=== PATIENT | female | born 2000 | race Caucasian/White ===

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

== ENCOUNTER 2018-07-02 14:22 | Emergency (ER) | payer OTHER | END 2018-07-02 16:28 | disposition home or self-care (01) | LOC: FTE 14:22 | DX: S99.912A Unspecified injury of left ankle, initial encounter (principal); X58.XXXA Exposure to other specified factors, initial encounter; Y92.219 Unspecified school as the place of occurrence of the external cause | CPT/HCPCS: 73590; 73610; 73630-LT; 99283-25 ==

== ENCOUNTER 2019-03-20 07:02 | Day surgery (SDC) | payer OTHER ==
[2019-03-20 08:06] LABS: ADD MAN DIFF? NO
[2019-03-20 08:09] LABS: WHITE BLOOD COUNT 5.1 10^3/ul (4.8-10.8)
[2019-03-20 08:09] LABS: BASOPHILS % 0.8 % (0.0-2.0); EOSINOPHILS # 0.2 10^3/ul (0.0-0.5); EOSINOPHILS % 3.1 % (0.0-7.0); HEMATOCRIT 40.1 % (37.0-47.0); HEMOGLOBIN 13.5 g/dl (12.0-16.0); LYMPHOCYTES # 2.2 10^3/ul (0.8-2.9); LYMPHOCYTES % 43.4 % (18.0-55.0); MEAN CORPUSCULAR HEMOGLOBIN 30.1 pg (29.0-33.0); MEAN CORPUSCULAR HGB CONC 33.7 g/dl (32.0-37.0); MEAN CORPUSCULAR VOLUME 89.3 fl (72.0-104.0); MEAN PLATELET VOLUME 10.5 fl (7.4-10.4); MONOCYTE # 0.4 10^3/ul (0.3-0.9); NEUTROPHIL # 2.3 10^3/ul (1.6-7.5); NEUTROPHILS % 45.5 % (30.0-74.0); PLATELET COUNT 216 10^3/UL (140-415); RED BLOOD COUNT 4.49 10^6/ul (4.20-5.40); RED CELL DISTRIBUTION WIDTH 12.2 % (11.5-14.5)
[2019-03-20] MEDS: SOD CHLORIDE 0.9% 1,000 ML IV (08:15)
[2019-03-20 08:28] LABS: ANION GAP 9 (5-13); BLOOD UREA NITROGEN 14 mg/dl (7-20); CALCIUM 9.6 mg/dl (8.4-10.2); CARBON DIOXIDE 28 mmol/L (21-31); CHLORIDE 105 mmol/L (97-110); CREATININE 0.58 mg/dl (0.44-1.00); Estimated GFR > 60 mL/min (>60); GLUCOSE 96 mg/dl (70-220); POTASSIUM 4.3 mmol/L (3.5-5.1); SODIUM 142 mmol/L (135-144)
[2019-03-20 08:33] LABS: PROTIME 12.3 Sec (11.9-14.9)
[2019-03-20 08:34] LABS: PARTIAL THROMBOPLASTIN TIME 26.4 Sec (23.0-35.0)
[2019-03-20] MEDS ORDERED: CEFAZOLIN 2 GM/50 ML (PMX) 50 ML IVPB (09:00)
[2019-03-20] MEDS ORDERED: BUPIVACAINE 0.5% (SDV) 30 ML INJ (11:53)
[2019-03-20] MEDS ORDERED: FENTAnyl 50 MCG/ML VIAL (12:17)
[2019-03-20] MEDS ORDERED: PROPOFOL 20 ML ×2 (12:27→12:32)
[2019-03-20] MEDS ORDERED: CEFAZOLIN 1 GM INJ (12:27)
[2019-03-20] MEDS ORDERED: LIDOCAINE 2% (SDV) 5 ML INJ (12:27)
[2019-03-20] MEDS ORDERED: FENTAnyl 50 MCG/ML VIAL IV (12:30)
[2019-03-20] MEDS ORDERED: OXYCODONE/ACETAMINOPHEN (5/325) TAB PO (12:30)
[2019-03-20] MEDS ORDERED: HYDROmorphONE 1 MG/5 ML IV SYRINGE IV (12:30)
[2019-03-20] MEDS: LIDOCAINE 1% (MPF) 30 ML INJ (12:50)
[2019-03-20] MEDS ORDERED: KETOROLAC 30 MG INJ (12:57)
[2019-03-20] MEDS: LACTATED RINGER'S 1,000 ML IV (13:20)
[2019-03-20] MEDS ORDERED: morphine 10 MG INJ IM (13:30)
[2019-03-20] MEDS ORDERED: HYDROCODONE/APAP (5/325) TAB PO (13:30)
[2019-03-20] MEDS ORDERED: ONDANSETRON 4 MG INJ IV (13:30)
== END 2019-03-20 15:02 | disposition home or self-care (01) ==
LOC: SDS 07:02
DX: L72.0 Epidermal cyst (principal); L98.8 Other specified disorders of the skin and subcutaneous tissue
CPT/HCPCS: 11402; 80048; 85025; 85610; 85730; 88307